=== PATIENT | male | born 1980 | race American Indian/Alaskan Native ===

== ENCOUNTER 2019-05-14 01:26 | Observation (INO) | payer SELFPAY ==
[2019-05-14] MEDS ORDERED: ASPIRIN PO ONE (01:44)
[2019-05-14 02:19] LABS: Basophils # (Auto) 0.1 K/mm3 (0.0-0.1); Eosinophils # (Auto) 0.3 K/mm3 (0.0-0.4); Eosinophils % (Auto) 5.8 % (0.0-4.3); Hemoglobin 13.2 gm/dl (11.8-15.2); Lymphocytes # (Auto) 1.7 K/mm3 (1.2-5.4); Lymphocytes % (Auto) 30.5 % (13.4-35.0); Mean Corpuscular HGB Conc 34 % (32-34); Mean Corpuscular Volume 84 fl (84-94); Monocytes # (Auto) 0.6 K/mm3 (0.0-0.8); Monocytes % (Auto) 10.7 % (0.0-7.3); Platelet Count 215 K/mm3 (140-440); Red Blood Count 4.64 M/mm3 (3.65-5.03); Red Cell Distribution Width 13.8 % (13.2-15.2)
--- NOTE | 2019-05-14 02:39 | XRay Report ---
CHEST 1 VIEW 05/14/2019 1:54 AM INDICATION / CLINICAL INFORMATION: Chest Pain. COMPARISON: None available. FINDINGS: SUPPORT DEVICES: None. HEART / MEDIASTINUM: No significant abnormality. LUNGS / PLEURA: No significant pulmonary or pleural abnormality. No pneumothorax. ADDITIONAL FINDINGS: No significant additional findings. IMPRESSION: 1. No acute findings. Signer Name: Nikolay Roman MD Signed: 05/14/2019 2:35 AM Workstation Name: [id number]
[2019-05-14 02:41] LABS: BUN/Creatinine Ratio 18; Blood Urea Nitrogen 14 mg/dL (9-20); Calcium 9.2 mg/dL (8.4-10.2); Hemolysis Index 5
[2019-05-14] MEDS ORDERED: K-DUR PO ONE (02:44)
--- NOTE | 2019-05-14 02:54 | Emergency Department Report ---
HPI - General Chief Complaint: Chest Pain Time Seen by Provider: 05/14/19 02:34 - HPI HPI: Room 4 The patient is a 38-year-old male presenting with chief complaint of chest pain. Patient states today at 16:000 anterior chest pain described as sharp and intermittent in nature. The patient and his shortness of breath but denies nausea/vomiting or diaphoresis. Patient denies pleurisy or recent flights/long car trips. Patient denies cough or fever. The patient currently gets his pain score 7-8/10. The patient states he has had intermittent chest pain over the past 5-6 years however is only during cold weather so this is abnormal for him. The patient states she's never had a stress test or cardiac catheterization Location: [See above] Duration: [See above] Quality: [See above] Severity: [See above] Timing: [See above] Context: [See above] Modifying factors: [See above] Associated signs and symptoms: [see above] ED Past Medical Hx - Past Medical History Previous Medical History?: No - Surgical History Past Surgical History?: No - Family History Family history: no significant - Social History Smoking Status: Never Smoker Substance Use Type: None (denies illicit drug use) - Medications Home Medications: Home Medications Medication Instructions Recorded Confirmed Last Taken Type No Known Home Medications [No 05/14/19 05/14/19 Unknown History Reported Home Medications] ED Review of Systems ROS: Stated complaint: CHEST PAIN Other details as noted in HPI Constitutional: denies: diaphoresis Eyes: denies: eye pain ENT: denies: throat pain Respiratory: shortness of breath Cardiovascular: chest pain Endocrine: no symptoms reported Gastrointestinal: denies: abdominal pain, nausea, vomiting Genitourinary: denies: dysuria Musculoskeletal: denies: back pain Neurological: denies: headache Physical Exam - Physical Exam Vital Signs: Vital Signs 05/14/19 05/14/19 01:41 02:20 Temperature 97.3 F L 97.7 F Pulse Rate 77 65 Respiratory 16 24 Rate Blood Pressure 126/82 Blood Pressure 116/60 [Left] O2 Sat by Pulse 99 98 Oximetry Physical Exam: GENERAL: The patient is well-developed well-nourished male lying on stretcher not appear to be in acute distress. [] HEENT: Normocephalic. Atraumatic. Extraocular motions are intact. Patient has moist mucous membranes. NECK: Supple. Trachea midline CHEST/LUNGS: Clear to auscultation. There is no respiratory distress noted. HEART/CARDIOVASCULAR: Regular. There is no tachycardia. There is no gallop rub or murmur. ABDOMEN: Abdomen is soft, nontender. Patient has normal bowel sounds. There is no abdominal distention. SKIN: There is no rash. There is no edema. There is no diaphoresis. NEURO: The patient is awake, alert, and oriented. The patient is cooperative. The patient has normal speech MUSCULOSKELETAL: There is no evidence of acute injury. ED Course Vital Signs 05/14/19 05/14/19 01:41 02:20 Temperature 97.3 F L 97.7 F Pulse Rate 77 65 Respiratory 16 24 Rate Blood Pressure 126/82 Blood Pressure 116/60 [Left] O2 Sat by Pulse 99 98 Oximetry ED Medical Decision Making - Lab Data Result diagrams: 05/14/19 02:02 05/14/19 02:02 Laboratory Tests 05/14/19 05/14/19 05/14/19 02:02 02:02 02:56 WBC 5.5 RBC 4.64 Hgb 13.2 Hct 39.0 MCV 84 MCH 29 MCHC 34 RDW 13.8 Plt Count 215 Lymph % (Auto) 30.5 [place] % (Auto) 10.7 H Eos % (Auto) 5.8 H Baso % (Auto) 1.0 Lymph # 1.7 [place] # 0.6 Eos # 0.3 Baso # 0.1 Seg Neutrophils % 52.0 Seg Neutrophils # 2.9 D-Dimer Sodium 140 Potassium 3.1 L Chloride 101.3 Carbon Dioxide 24 Anion Gap 18 BUN 14 Creatinine 0.8 Estimated GFR > 60 BUN/Creatinine Ratio 18 Glucose 126 H Calcium 9.2 Troponin T < 0.010 < 0.010 05/14/19 02:56 WBC RBC Hgb Hct MCV MCH MCHC RDW Plt Count Lymph % (Auto) [place] % (Auto) Eos % (Auto) Baso % (Auto) Lymph # [place] # Eos # Baso # Seg Neutrophils % Seg Neutrophils # D-Dimer < 135.0 Sodium Potassium Chloride Carbon Dioxide Anion Gap BUN Creatinine Estimated GFR BUN/Creatinine Ratio Glucose Calcium Troponin T - EKG Data -: EKG Interpreted by Nm EKG shows normal: sinus rhythm Rate: normal - EKG Data When compared to previous EKG there are: previous EKG unavailable Interpretation: normal EKG - Radiology Data Radiology results: report reviewed (chest x-ray), image reviewed (chest x-ray) interpreted by me: Chest x-ray-no focal infiltrates, no pneumothorax [facility] [address] [place] [address] XRay Report Signed Patient: SOLO GRAHAM MR#: [id number] : 1980 Acct:[id number] Age/Sex: 38 / M ADM Date: 05/14/19 Loc: ED Attending Dr: Ordering Physician: JESSICA LOW MD Date of Service: 05/14/19 Procedure(s): XR chest 1V ap Accession Number(s): [id number] cc: JESSICA LOW MD Fluoro Time In [place] xena: CHEST 1 VIEW 05/14/2019 1:54 AM INDICATION / CLINICAL INFORMATION: Chest Pain. COMPARISON: None available. FINDINGS: SUPPORT DEVICES: None. HEART / MEDIASTINUM: No significant abnormality. LUNGS / PLEURA: No significant pulmonary or pleural abnormality. No pneumothorax. ADDITIONAL FINDINGS: No si gnificant additional findings. IMPRESSION: 1. No acute findings. Signer Name: Nikolay Roman MD Signed: 05/14/2019 2:35 AM Workstation Name: [id number] Transcribed By: TL Dictated By: Nikolay Roman MD Electronically Authenticated By: Nikolay Roman MD Signed Date/Time: 05/14/19234 DD/ 4 TD/TT: - Differential Diagnosis ACS, pericarditis, GERD, PE Critical care attestation.: If time is entered above; I have spent that time in minutes in the direct care of this critically ill patient, excluding procedure time. ED Disposition Clinical Impression: Chest pain Disposition: OP ADMIT IP TO THIS HOSP Is pt being admited?: Yes Does the pt Need Aspirin: Yes Condition: Fair Instructions: Chest Pain (ED) Referrals: PRIMARY CARE,MD [Primary Care Provider] - 3-5 Days Time of Disposition: 03:51 (hospitalist paged (Dr. Joslyn Arceo))
[2019-05-14] MEDS ORDERED: ZOFRAN IV ONE (03:49)
[2019-05-14] MEDS ORDERED: NITRO-BID 2% TP ONE (03:49)
[2019-05-14] MEDS ORDERED: SUBLIMAZE IV ONE (03:49)
[2019-05-14] MEDS ORDERED: ZOFRAN IV PRN (04:45)
[2019-05-14] MEDS ORDERED: PERCOCET 5/325 PO PRN (04:45)
[2019-05-14] MEDS ORDERED: SODIUM CHLORIDE FLUSH SYRINGE 10 ML IV PRN (04:45)
[2019-05-14] MEDS ORDERED: TYLENOL PO PRN (04:45)
--- NOTE | 2019-05-14 04:46 | History and Physical Report ---
History of Present Illness Date of examination: 05/14/19 History of present illness: 38 year old man with no medical follow-up comes emergency room complaining of chest pain located in the epigastric and right chest which she describes as sharp, intermittent every 1 minute, intensity 5/10, no radiation, can't identify exacerbating or relieving factors. Denies nausea vomiting, shortness breath, diaphoresis or palpitation eview Of Systems: Constitutional: no weight loss, fever, chills Ears, eyes, nose, mouth and throat: no nasal congestion, no nasal discharge, no sinus pressure, blurry vision, diplopia Neck: No neck pain or rigidity. Cardiovascular: No palpitations Respiratory: No shortness of breath, cough Gastrointestinal: No hematochezia, abdominal pain Genitourinary : no dysuria, frequency , hematuria Musculoskeletal: no muscle ache , joint pain Integumentary: no rash, no pruritis Neurological: no parathesias, focal weakness Endocrine: no cold or heat intolerance, no polyuria or polydipsia Hematologic/Lymphatic: no easy bruising, no easy bleeding, no gland swelling Allergic/Immunologic: no urticaria, no angioedema. PAST MEDICAL HISTORY:None PAST SURGICAL HISTORY:None FAMILY HISTORY:hypertension, diabetes SOCIAL HISTORY: Denies tobacco, drugs, alcohol Medications and Allergies Allergies Allergy/AdvReac Type Severity Reaction Status Date / Time No Known Allergies Allergy Unverified 05/14/19 01:43 Home Medications Medication Instructions Recorded Confirmed Last Taken Type No Known Home Medications [No 05/14/19 05/14/19 Unknown History Reported Home Medications] Active Meds: Active Medications Acetaminophen (Tylenol) 650 mg PO Q4H PRN PRN Reason: Pain MILD(1-3)/Fever >100.5/JIMENEZ Enoxaparin Sodium (Lovenox) 30 mg SUB-Q QDAY MIR[place] Ondansetron HCl (Zofran) 4 mg IV Q8H PRN PRN Reason: Nausea And Vomiting Oxycodone/Acetaminophen (Percocet 5/325) 1 tab PO Q6H PRN PRN Reason: Pain, Moderate (4-6) Sodium Chloride (Sodium Chloride Flush Syringe 10 Ml) 10 ml IV BID MIRACLE Sodium Chloride (Sodium Chloride Flush Syringe 10 Ml) 10 ml IV PRN PRN PRN Reason: LINE FLUSH Exam - Physical Exam Narrative exam: General Apperance: The patient sitting in bed no acute distress HEENT: Normocephalic, atraumatic. Pupils equally round and reactive to light, extraocular movement intact, and no sclericterus or JVD or thyromegaly or nodule. Neck supple, no carotid bruit, mucous membranes moist, no exudate or erythema Heart: S1-S2, regular is rhythm Lungs: Clear to auscultation bilaterally, breathing comfortable Abdomen: Positive bowel sounds, soft, nontender, nondistended, no organomegaly Extremities: No edema cyanosis clubbing Skin: no rash, nodule, warm and dry Neuro:CN 2 -12 intact, motor/sensory intact, speech is fluent - Constitutional Vitals: Temp Pulse Resp BP Pulse Ox 97.7 F 66 16 106/58 100 05/14/19 02:20 05/14/19 04:38 05/14/19 04:00 05/14/19 04:38 05/14/19 04:00 Results - Labs CBC & Chem 7: 05/14/19 02:02 05/14/19 02:02 Labs: Abnormal lab results 05/14/19 05/14/19 Range/Units 02:02 02:02 [place] % (Auto) 10.7 H (0.0-7.3) % Eos % (Auto) 5.8 H (0.0-4.3) % Potassium 3.1 L (3.6-5.0) mmol/L Glucose 126 H (75-100) mg/dL - Imaging and Cardiology EKG: image reviewed Chest x-ray: report reviewed Assessment and Plan Assessment Chest pain Hypokalemia Plan Obtain stress test, repeat potassium Percocet, DVT prophylaxis
[2019-05-14] MEDS ORDERED: SODIUM CHLORIDE FLUSH SYRINGE 10 ML IV SCH (10:00)
[2019-05-14] MEDS ORDERED: LOVENOX SUB-Q SCH (10:00)
--- NOTE | 2019-05-14 11:39 | Discharge Summary ---
Providers - Providers Date of Admission: 05/14/19 04:45 Attending physician: GERARD HERNANDEZ MD Primary care physician: DOCUMENT CONTR[employer]LLER Hospitalization Reason for admission: chest pain Condition: Stable Hospital course: 38-year-old male presenting with chief complaint of chest pain. Patient states today at 16:000 anterior chest pain described as sharp and intermittent in nature. The patient and his shortness of breath but denies nausea/vomiting or diaphoresis. Patient denies pleurisy or recent flights/long car trips. Patient denies cough or fever. The patient currently gets his pain score 7-8/10. The patient states he has had intermittent chest pain over the past 5-6 years however is only during cold weather so this is abnormal for him. The patient states she's never had a stress test or cardiac catheterization * Patient underwent stress test was negative * BP too low to add norvasc for possible Esophageal spsam * Recommend and discussed with the patient to follow with GI on discharge, referral given * Clinically stable for discharge at this time and no further chest pain ATYPICAL CHEST PAIN Likely secondary to weather mediated Eosphageal spasm Hypokalemia Disposition: DC-01 TO HOME OR SELFCARE Time spent for discharge: 35 mins Core Measure Documentation - Palliative Care Palliative Care/ Comfort Measures: Not Applicable - Core Measures Any of the following diagnoses?: none Exam - Constitutional Vitals: Temp Pulse Resp BP Pulse Ox 97.7 F 60 17 108/73 100 05/14/19 02:20 05/14/19 07:00 05/14/19 07:00 05/14/19 07:00 05/14/19 07:00 General appearance: Present: no acute distress, well-nourished - EENT Eyes: Present: PERRL, EOM intact ENT: hearing intact, clear oral mucosa, dentition normal - Neck Neck: Present: supple, normal ROM - Respiratory Respiratory effort: normal Respiratory: bilateral: CTA - Cardiovascular Rhythm: regular Heart Sounds: Present: S1 & S2, gallop. Absent: systolic murmur, diastolic murmur - Extremities Extremities: no ischemia, pulses intact, pulses symmetrical, No edema, normal temperature, Full ROM Peripheral Pulses: within normal limits - Abdominal General gastrointestinal: Present: soft, non-tender, non-distended, normal bowel sounds - Integumentary Integumentary: Present: clear, warm, dry - Musculoskeletal Musculoskeletal: strength equal bilaterally - Psychiatric Psychiatric: appropriate mood/affect, intact judgment & insight, memory intact, cooperative - Neurologic Neurologic: CNII-XII intact, moves all extremities - Allied Health Allied health notes reviewed: nursing Plan Activity: advance as tolerated, fall precautions Diet: low fat Special Instructions: record daily BP diary Follow up with: PRIMARY CAREMD [Primary Care Provider] - 3-5 Days MAISHA MEJIA MD [Staff Physician] - 7 Days
[2019-05-14 11:51] VITALS: BP 110/72
--- NOTE | 2019-05-15 04:26 | Treadmill Report ---
EXERCISE STRESS TEST REPORT REFERRING PHYSICIAN: Tia Arceo M.D., hospitalist. CLINICAL DATA: A 38-year-old pleasant -[place] gentleman with history of atypical chest pains underwent exercise stress test as per the standard [facility] protocol. The patient walked on the treadmill for a total of 14 minutes and his peak heart rate was 153 (83% of predicted maximal heart rate) and his peak systolic blood pressure was 152 mmHg. During exercise stress test, the patient did not have any chest pain. There was no evidence of ischemia on the EKG. The patient was stable in the recovery. CONCLUSIONS: 1. Excellent exercise tolerance. 2. No chest pain. 3. No evidence of ischemia on EKG. 4. Negative exercise stress test at 83% of predicted maximal heart rate. JOB# [id number] VANESSA/LEIGHANN SCHULTZ
== END 2019-05-14 17:55 | disposition home or self-care (01) ==
LOC: ED 01:26 → 4A 04:45
PROVIDERS: ADMIT Internal Medicine; ATTEND Internal Medicine
DX: R07.9 Chest pain, unspecified (principal)
CPT/HCPCS: 36415; 71045; 80048; 84484; 85025; 85379; 93005; 93010; 93017; 96372; 96374; 96375; 99284; G0378; J1650; J2405; J3010